=== PATIENT | male | born 1940 | race Two or more races ===

== ENCOUNTER 2024-10-10 20:37 | Inpatient (IN) | payer OTHER ==
[~2024-10-10] VITALS: Ht 170.2 cm; Wt 77.1 kg
[~2024-10-10 20:37] MED LIST: CEPHALEXIN500 M1 PO
[2024-10-10] MEDS ORDERED: RAZADYNE ER16 MG PO (20:42)
[2024-10-10] MEDS ORDERED: ATORVASTATIN CA20 MG PO (20:42)
[2024-10-10] MEDS ORDERED: CLONAZEPAM0.5 MG PO (20:42)
[2024-10-10] MEDS ORDERED: SINGULAIR10 MG PO (20:42)
[2024-10-10] MEDS ORDERED: QUETIAPINE FUMA25 MG PO (20:43)
[2024-10-10] MEDS ORDERED: NICOTINE PATCH1 EAC2 TD (20:43)
[2024-10-10] MEDS ORDERED: MEMANTINE HCL10 MG PO (20:43)
[2024-10-10] MEDS ORDERED: IPRATROPIUM BROMIDE 0.5 MG/2.5 ML AMPUL.NEB IH ONE ×2 (21:30→22:08)
[2024-10-10] MEDS ORDERED: CEFTRIAXONE SODIUM 1,000 MG VIAL IM ONE (21:30)
[2024-10-10] MEDS ORDERED: LEVALBUTEROL HCL 1.25 MG/3 ML SOLUTION IH ONE ×2 (21:30→22:08)
[2024-10-10] MEDS ORDERED: BENZONATATE 200 MG CAPSULE PO ONE (21:30)
[2024-10-10] MEDS ORDERED: LIDOCAINE HCL 1% 10ML VIAL ONE (21:35)
[2024-10-10] MEDS ORDERED: CEFTRIAXONE SODIUM 1,000 MG VIAL ONE (21:35)
[2024-10-10 22:14] LABS: BASO % 0.3 % (0.1-1.2); EOS # 0.12 (0.04-0.54); EOS % 3.1 % (0.7-7.0); HEMATOCRIT 31.2 % (40.1-51.0); HEMOGLOBIN 10.3 g/dL (13.7-17.5); LYMPH % 28.9 % (19.3-53.1); MEAN CORPUSCULAR HEMOGLOBIN 30.8 pg (25.6-32.2); MONO # 0.48 (0.24-0.82); NEUT # 2.09 (1.56-6.13); NEUT % 54.8 % (34.0-71.1); RED BLOOD COUNT 3.34 M/uL (4.63-6.08); RED CELL DISTRIBUTION WIDTH 12.5 % (11.6-14.4)
[2024-10-10 22:16] LABS: COVID-19 AG NEGATIVE (NEGATIVE)
[2024-10-10 22:16] LABS: ABG PH 7.373 (7.35-7.45); ABG PO2 73.6 mmHg (80-100); ABG pCO2 50.3 mmHg (35-45); BASE EXCESS 2.4 mmol/l; BICARBONATE 28.6 mmol/l (23-25); SaO2 94.2 %; Tco2 30.2 mmol/l
[2024-10-10 22:18] LABS: PH,URINE 5.5 (5.0-8.0); URINE APPEARANCE Clear; URINE BILIRRUBIN Negative (NEGATIVE); URINE BLOOD Negative; URINE COLOR Yellow; URINE GLUCOSE Negative (NEGATIVE); URINE KETONE Negative (NEGATIVE); URINE LEUKOCYTE Negative; URINE NITRATE Negative; URINE PROTEIN Negative (NEGATIVE); URINE UROBILINOGEN 0.2 E.U./dl
[2024-10-10 22:19] LABS: URINE BACTERIA 15.9 uL (0.0-1933); URINE EPITHELIAL CELLS 1.7 uL (0.0-38.8); URINE WBC 5.2 uL (0.0-23.2)
[2024-10-10 22:24] LABS: URINE RBC 1.3 uL (0.0-20.8)
[2024-10-10 22:24] LABS: INFLUENZA A AG NEGATIVE (NEGATIVE); INFLUENZA B AG NEGATIVE (NEGATIVE)
[2024-10-10 22:25] LABS: ALBUMIN 2.9 gm/dL (3.4-5.0); BILIRUBIN TOTAL 0.3 mg/dL (0.3-1.2); CALCIUM 8.3 mg/dL (8.5-10.1); CREATININE SERUM 1.65 mg/dL (0.70-1.30); GFR 39.94; GLOBULINA 3.3 G/DL (2.4-3.5); POTASSIUM 4.21 mEq/L (3.5-5.1); TOTAL PROTEIN 6.2 gm/dL (6.4-8.2)
[2024-10-10 22:33] LABS: allen test SATISFACTORY; mode ROOM AIR; o2 21 %; puncture site RADIAL RIGHT
[2024-10-10 22:39] LABS: MONO % 12.6 % (4.7-12.5); PLATELET COUNT 85 K/uL (163-369)
[2024-10-10] MEDS ORDERED: 0.9 % SODIUM CHLORIDE 1,000 ML IV ONE (23:00)
[2024-10-11 06:26] LABS: BASO % 0.4 % (0.1-1.2); EOS # 0.09 (0.04-0.54); HEMATOCRIT 34.9 % (40.1-51.0); HEMOGLOBIN 11.4 g/dL (13.7-17.5); LYMPH # 1.06 (1.18-3.74); LYMPH % 23.6 % (19.3-53.1); MEAN CORPUSCULAR HEMOGLOBIN 31.1 pg (25.6-32.2); MONO # 0.61 (0.24-0.82); NEUT # 2.71 (1.56-6.13); NEUT % 60.2 % (34.0-71.1); RED BLOOD COUNT 3.66 M/uL (4.63-6.08); RED CELL DISTRIBUTION WIDTH 12.6 % (11.6-14.4)
[2024-10-11 06:38] LABS: MONO % 13.6 % (4.7-12.5); PLATELET COUNT 90 K/uL (163-369)
[2024-10-11] MEDS ORDERED: METHYLPREDNISOLONE SOD SUCC 125 MG VIAL IV SCH (06:46)
[2024-10-11] MEDS ORDERED: LEVALBUTEROL HCL 0.63 MG/3 ML SOLUTION IH SCH (06:46)
[2024-10-11] MEDS ORDERED: METHYLPREDNISOLONE SOD SUCC 125 MG VIAL ONE ×2 (08:24→08:34)
[2024-10-11] MEDS ORDERED: WATER FOR INJ.,BACTERIOSTATIC 30 ML VIAL IJ ONE (08:24)
[2024-10-11] MEDS ORDERED: LEVALBUTEROL HCL 0.63 MG/3 ML SOLUTION IH ONE ×2 (08:31→18:18)
[2024-10-11 18:02] VITALS: BP 138/64
[2024-10-11] MEDS ORDERED: IPRATROPIUM BROMIDE 0.5 MG/2.5 ML AMPUL.NEB IH SCH (18:41)
[2024-10-11] MEDS ORDERED: CEFTRIAXONE SODIUM 2,000 MG in 0.9 % SODIUM CHLORIDE 100 ML IV SCH (18:44)
[2024-10-11] MEDS ORDERED: AZITHROMYCIN 500 MG in DEXTROSE 5 % IN WATER 250 ML IV SCH (18:44)
[2024-10-11] MEDS ORDERED: 0.9 % SODIUM CHLORIDE 1,000 ML IV SCH (18:45)
[2024-10-11] MEDS ORDERED: ACETAMINOPHEN 500 MG GEL..CAP PO PRN (18:45)
[2024-10-11] MEDS ORDERED: GUAIFEN/DEXTROMETHORPHAN/PE 10 ML BLIST.PACK PO ONE (19:18)
[2024-10-11] MEDS ORDERED: CEFTRIAXONE SODIUM 2,000 MG VIAL ONE (19:18)
[2024-10-11] MEDS ORDERED: LEVALBUTEROL HCL 1.25 MG/3 ML SOLUTION IH SCH (20:00)
[2024-10-11] MEDS ORDERED: GUAIFEN/DEXTROMETHORPHAN/PE 10 ML BLIST.PACK PO SCH (20:00)
[2024-10-11] MEDS ORDERED: CLONAZEPAM 0.5 MG TABLET PO SCH (21:00)
[2024-10-11] MEDS ORDERED: AZITHROMYCIN 500 MG VIAL IV SCH (21:00)
[2024-10-11] MEDS ORDERED: METHYLPREDNISOLONE SOD SUCC 40 MG VIAL IV SCH (21:00)
[2024-10-11] MEDS ORDERED: METHYLPREDNISOLONE SOD SUCC 40 MG VIAL ONE (22:16)
[2024-10-11] MEDS ORDERED: AZITHROMYCIN 500 MG VIAL IV ONE (22:17)
[2024-10-11] MEDS ORDERED: LEVALBUTEROL HCL 1.25 MG/3 ML SOLUTION IH ONE (23:58)
[2024-10-11] MEDS ORDERED: IPRATROPIUM BROMIDE 0.5 MG/2.5 ML AMPUL.NEB IH ONE (23:58)
[2024-10-12 06:49] LABS: INR 1.03; PARTIAL THROMBOPLASTIN TIME 29.6 SECONDS (22.0-34.0); PROTHROMBIN TIME 11.2 SECONDS (9.0-11.5)
[2024-10-12 07:54] LABS: CALCIUM 8.3 mg/dL (8.5-10.1); CREATININE SERUM 1.39 mg/dL (0.70-1.30); GFR 48.68; POTASSIUM 4.72 mEq/L (3.5-5.1); TSH 0.925 uIU/mL (0.358-3.74)
[2024-10-12 08:00] LABS: C-REACTIVE PROTEIN 6.8 MG/DL (0.00-0.29)
[2024-10-12] MEDS ORDERED: FAMOTIDINE/PF 20 MG in 0.9 % SODIUM CHLORIDE 8 ML IV PUSH SCH (09:00)
[2024-10-12] MEDS ORDERED: MEMANTINE HCL 10 MG TABLET PO SCH (09:00)
[2024-10-12] MEDS ORDERED: AMLODIPINE BESYLATE 2.5 MG TABLET PO SCH (09:00)
[2024-10-12] MEDS ORDERED: ENOXAPARIN SODIUM 30 MG/0.3 ML SYRINGE SUBCUTANEO SCH (09:00)
[2024-10-12 09:32] VITALS: BP 137/47; O2SAT 96
[2024-10-12 11:32] VITALS: BP 147/70; O2SAT 92
[2024-10-12] MEDS ORDERED: HALOPERIDOL LACTATE 5 MG/ML AMPUL IM STA (13:06)
[2024-10-12] MEDS ORDERED: MONTELUKAST SODIUM 10 MG TABLET PO SCH (17:00)
== END 2024-10-12 18:16 | disposition home or self-care (01) | DRG 191 ==
LOC: ER 20:49 → SEC-K 10-11 20:49 → SURG 10-11 20:49
PROVIDERS: General Practice; ADMIT Student in an Organized Health Care Education/Training Program; ATTEND Student in an Organized Health Care Education/Training Program
PROC: BB24ZZZ Computerized Tomography (CT Scan) of Bilateral Lungs (ICD-10-PCS; principal; 2024-10-11)
PROC: 3E0F7GC Introduction of Other Therapeutic Substance into Respiratory Tract, Via Natural or Artificial Opening (ICD-10-PCS; 2024-10-11)
DX: J44.9 Chronic obstructive pulmonary disease, unspecified (principal); N17.9 Acute kidney failure, unspecified; R05.9 Cough, unspecified; E86.0 Dehydration; D69.6 Thrombocytopenia, unspecified